=== PATIENT | male | born 1985 | race Caucasian/White ===

== ENCOUNTER 2021-02-11 10:49 | Emergency (ER) | payer BC ==
[~2021-02-11] VITALS: Ht 177.8 cm; Wt 72.6 kg
[2021-02-11 12:21] LABS: HEMATOCRIT 45.7 % (36.7-47.1); MEAN CORPUSCULAR HEMOGLOBIN 28.4 uug (23.8-33.4); MEAN CORPUSCULAR VOLUME 85.6 fL (73.0-96.2); PLATELET COUNT (AUTO) 267 K/uL (152-348)
--- NOTE | 2021-02-11 12:30 | NUR ---
Pt is resting in gurney with no s/s of distress noted. Blood drawn by lab, EKG done and rapid influenza specimen sent to lab.
[2021-02-11 12:32] LABS: CREATININE 0.8 mg/dL (0.6-1.3); POTASSIUM 4.7 mmol/L (3.5-5.1)
[2021-02-11 12:51] LABS: BILIRUBIN,TOTAL 0.4 mg/dL (0.2-1.0); TOTAL PROTEIN, SERUM 8.3 g/dL (6.4-8.2)
[2021-02-11] MEDS ORDERED: D-ME473S63 PO (15:19)
[2021-02-11 15:55] VITALS: BP 114/74
--- NOTE | 2021-02-11 15:55 | NUR ---
Patient discharged to home in stable condition. Written and verbal after care instructions given. Patient verbalizes understanding of instructions. Stressed follow up or return to ER for worsening s/s.
== END 2021-02-11 15:56 | disposition home or self-care (01) ==
LOC: ER 10:49
DX: U07.1 COVID-19 (principal); G35 Multiple sclerosis; R94.31 Abnormal electrocardiogram [ECG] [EKG]; D72.819 Decreased white blood cell count, unspecified
CPT/HCPCS: 71045; 80053; 82550; 82728; 83605; 83615; 83880; 84145; 84450; 84484; 85025; 85379; 85730; 86140; 87040; 87260; 87275; 87279; 87280; 87400; 87426; 93005; 99285; U0003; 36415; 70030-TC; A4663